=== PATIENT | female | born 1945 | race Caucasian/White ===

== ENCOUNTER 2020-02-22 08:49 | Emergency (ER) | payer OTHER, MEDICARE ==
[~2020-02-22] VITALS: Ht 170.2 cm; Wt 74.8 kg
[~2020-02-22 08:49] MED LIST: LEVSOD75 PO; LISI5 PO; NAPR220
== END 2020-02-22 10:10 | disposition home or self-care (01) ==
LOC: ER 08:49
DX: S61.011A Laceration without foreign body of right thumb without damage to nail, initial encounter (principal); Z88.0 Allergy status to penicillin; Z88.5 Allergy status to narcotic agent; Z88.8 Allergy status to other drugs, medicaments and biological substances; Z79.899 Other long term (current) drug therapy; E03.9 Hypothyroidism, unspecified; Z87.891 Personal history of nicotine dependence; W26.2XXA Contact with edge of stiff paper, initial encounter
CPT/HCPCS: 12001; 99282-25

== ENCOUNTER 2020-08-30 10:55 | Emergency (ER) | payer OTHER, MEDICARE ==
[~2020-08-30] VITALS: Ht 167.6 cm; Wt 108.9 kg
[2020-08-30] MEDS ORDERED: CETI5 PO (11:09)
[2020-08-31] MEDS ORDERED: AMLODIPINE BESYL5 MG PO (11:01)
[2020-08-31] MEDS ORDERED: LOSA25 PO (11:02)
[2020-08-31] MEDS ORDERED: ATOR20 PO (11:02)
== END 2020-08-30 14:00 | disposition home or self-care (01) ==
LOC: ER 10:55
DX: S00.03XA Contusion of scalp, initial encounter (principal); E03.9 Hypothyroidism, unspecified; Z79.899 Other long term (current) drug therapy; Z88.0 Allergy status to penicillin; Z88.5 Allergy status to narcotic agent; Z88.6 Allergy status to analgesic agent; Z91.013 Allergy to seafood; Z87.891 Personal history of nicotine dependence; W01.10XA Fall on same level from slipping, tripping and stumbling with subsequent striking against unspecified object, initial encounter
CPT/HCPCS: 70450; 99284-25

== ENCOUNTER 2020-08-31 10:43 | Emergency (ER) | payer OTHER, MEDICARE ==
[~2020-08-31] VITALS: Ht 167.6 cm; Wt 77.1 kg
[~2020-08-31 10:43] MED LIST changes: +CETI5 PO
[2020-08-31] MEDS ORDERED: AMLODIPINE BESYL5 MG PO (11:01)
[2020-08-31] MEDS ORDERED: ATOR20 PO (11:02)
[2020-08-31] MEDS ORDERED: LOSA25 PO (11:02)
== END 2020-08-31 11:40 | disposition home or self-care (01) ==
LOC: ER 10:43
DX: S06.6X9A Traumatic subarachnoid hemorrhage with loss of consciousness of unspecified duration, initial encounter (principal); E03.9 Hypothyroidism, unspecified; Z88.0 Allergy status to penicillin; Z79.899 Other long term (current) drug therapy; Z88.6 Allergy status to analgesic agent; Z88.5 Allergy status to narcotic agent; W01.10XA Fall on same level from slipping, tripping and stumbling with subsequent striking against unspecified object, initial encounter
CPT/HCPCS: 70450; 99283-25

== ENCOUNTER 2021-05-15 13:32 | Day surgery (SDC) | payer MEDICARE ==
[~2021-05-15] VITALS: Ht 162.6 cm; Wt 84.4 kg
[~2021-05-15 13:32] MED LIST changes: +AMLODIPINE BESYL5 MG PO; +ATOR20 PO; +BACL10; +BENADRYL25 M1; +CITALOPRAM HBR10 MG; +ERGO50000; +IBUP200; +LORA.5; +LORA10ER; +LOSA25 PO; +TIZA4
--- NOTE | 2021-05-15 14:10 | NUR ---
Ambulatory in Day Surgery Patient states colon prep results clear. History, Chart, Medications and Allergies reviewed before start of procedure. Pre-Op teaching done. Pt verbalizes understanding. Patient States Post-Procedure ride home has been arranged.
--- NOTE | 2021-05-15 15:52 | NUR ---
05/15/21 1552 Lulu Grey History, Chart, Medications and Allergies reviewed before start of procedure.O2 VIA N/C INTACT THROUGHOUT SEDATION/PROCEDURE. MONITOR INTACT WITH CONTINUOUS PULSE OXIMETRY AND INTERMITTENT BP.3-LEAD EKG REVIEWED WITH PHYSICIAN PRIOR TO START OF PROCEDURE.PATIENT DETERMINED TO BE ASA APPROPRIATE FOR PROPOFOL SEDATION PRIOR TO START OF PROCEDURE BY
--- NOTE | 2021-05-15 16:52 | NUR ---
Discharge instructions reviewed with patient. Patient verbalizes understanding. Copy given to patient to take home. Discharged via wheelchair to private car for ride home.
== END 2021-05-15 16:53 | disposition home or self-care (01) ==
LOC: ORSCMMR 13:32 → ORSCSDS 14:30 → ORSCMMR 14:30 → ORSCSDS 14:45 → ORSCMMR 14:45
PROVIDERS: Surgery
PROC: 0DBL8ZX Excision of Transverse Colon, Via Natural or Artificial Opening Endoscopic, Diagnostic (ICD-10-PCS; principal; 2021-05-15 14:30)
DX: Z12.11 Encounter for screening for malignant neoplasm of colon (principal); Z86.010 Personal history of colon polyps; D12.3 Benign neoplasm of transverse colon; E78.5 Hyperlipidemia, unspecified; I10 Essential (primary) hypertension; E03.9 Hypothyroidism, unspecified; E66.9 Obesity, unspecified; Z68.31 Body mass index [BMI] 31.0-31.9, adult; Z79.899 Other long term (current) drug therapy
CPT/HCPCS: J2704; J7120

== ENCOUNTER 2023-05-29 07:42 | Emergency (ER) | payer MEDICARE ==
[~2023-05-29] VITALS: Ht 162.6 cm; Wt 99.8 kg
[2023-05-29 08:22] LABS: BASOPHILS ABSOLUTE AUTO 0.04 K/mm3 (0.00-0.23); BASOPHILS PERCENT AUTO 1 % (0-2); EOSINOPHILS ABSOLUTE AUTO 0.02 K/mm3 (0.00-0.68); EOSINOPHILS PERCENT AUTO 0 % (0-6); Hematocrit 44.7 % (33.0-51.0); Hemoglobin 15.2 g/dL (11.5-16.0); IMMATURE GRAN ABSOLUTE AUTO 0.02 K/mm3 (0.00-0.10); IMMATURE GRAN PERCENT AUTO 0 % (0-1); LYMPHOCYTES ABSOLUTE AUTO 1.34 K/mm3 (0.84-5.20); LYMPHOCYTES PERCENT AUTO 18 % (21-46); MONOCYTES ABSOLUTE AUTO 0.41 K/mm3 (0.16-1.47); MONOCYTES PERCENT AUTO 6 % (4-13); Mean Corpuscular HGB 30.5 pg (26.0-34.0); Mean Corpuscular Volume 90 fL (80-100); Mean Platelet Volume 10.3 fL (9.1-12.4); NEUTROPHILS PERCENT AUTO 75 % (41-73); Platelet Count 261 K/mm3 (150-400); RDW Coefficient Variation 13.6 % (11.7-14.2); RDW Standard Deviation 44.1 fL (35.1-46.3); Red Blood Cell Count 4.99 M/mm3 (3.80-5.20); White Blood Cell Count 7.43 K/mm3 (4.00-11.30)
[2023-05-29 08:54] LABS: Albumin, Blood 4.3 g/dL (3.4-5.0); Albumin/Globulin Ratio 1.2 (0.8-1.8); Bilirubin, Total 0.5 mg/dL (0.1-1.0); Bun/Creatinine Ratio 16.2 (12.0-20.0); Calcium, Blood 9.7 mg/dL (8.5-10.1); Creatinine, Blood 0.87 mg/dL (0.40-1.00); Globulin, Blood 3.7 g/dL (2.2-4.0); Potassium, Blood 3.6 mmol/L (3.5-5.5)
[2023-05-29 09:30] VITALS: BP 196/100
== END 2023-05-29 09:35 | disposition home or self-care (01) ==
LOC: ER 07:42
PROVIDERS: Emergency Medicine
DX: I63.9 Cerebral infarction, unspecified (principal); R29.810 Facial weakness; I10 Essential (primary) hypertension; E03.9 Hypothyroidism, unspecified; Z88.0 Allergy status to penicillin; Z88.5 Allergy status to narcotic agent; Z88.8 Allergy status to other drugs, medicaments and biological substances; Z91.013 Allergy to seafood; Z79.899 Other long term (current) drug therapy
CPT/HCPCS: 70450; 80053; 85025; 93005; 93010; 99285-25; A9270